=== PATIENT | male | born 1980 | race American Indian/Alaskan Native ===

== ENCOUNTER 2019-06-27 19:14 | Emergency (ER) | payer MEDICAID, SELFPAY ==
[2019-06-27 19:21] VITALS: BP 104/63; PULSE 63; RESP 22; TEMP 36.7; O2SAT 99
[2019-06-27 21:57] VITALS: BP 106/60; PULSE 64; RESP 16; O2SAT 97
--- NOTE | 2019-06-27 21:58 | ED.BACK ---
HPI - Back Pain/Injury General Chief Complaint: Back Pain/Injury Stated Complaint: back pain Time Seen by Provider: 06/27/19 21:50 Source: patient Mode of arrival: wheelchair Limitations: no limitations History of Present Illness HPI Narrative: Patient is a 38-year-old male who presents with right-sided back pain. He says it started today after lifting heavy crab [place]. His in his right thoracic area. He initially had some tingling down his leg. It hurts whenever he walks. He also then jumped off the boat. He took some Tylenol and ibuprofen prior to arrival but still seems to be in pain. It is better while lying flat. Complaint: back pain Onset (ago): hour(s) Duration: constant Location: thoracic spine Quality: sharp Relieving factors: supine Exacerbating factors: movement Context: while lifting Related Data Previous Rx's Medication Instructions Recorded cyclobenzaprine 5 mg PO TID PRN #10 tab 06/27/19 Allergies Allergy/AdvReac Type Severity Reaction Status Date / Time No Known Drug Allergies Allergy Verified 06/27/19 19:21 Review of Systems Review of Systems Narrative: GENERAL: Denies chills,fever HEENT: Denies throat pain RESPIRATORY: Denies dyspnea, cough, wheezing CARDIOVASCULAR: Denies chest pain, palpitations GASTROINTESTINAL: Denies nausea, vomiting MUSCULOSKELETAL: See HPI SKIN: No rash, no laceration, no pruritus NEUROLOGIC: Denies weakness, dizziness, headache, numbness 8 point review of systems is negative except for those stated above and HPI PFSH Social History (Updated 06/27/19 @ 22:01 by Vandana Gamble DO) Smoking Status: Current every day smoker alcohol intake: never substance use type: does not use Social History Smoking Status: Current every day smoker alcohol intake: never substance use type: does not use Exam Initial Vital Signs Initial Vital Signs: Vital Signs Temperature 98.0 F 06/27/19 19:21 Pulse Rate 63 06/27/19 19:21 Respiratory Rate 22 06/27/19 19:21 Blood Pressure 104/63 06/27/19 19:21 Pulse Oximetry 99 06/27/19 19:21 GENERAL: Alert young male lying flat.. CARDIOVASCULAR: peripheral pulses in tact, cap refill <2 sec RESPIRATORY: No respiratory distress, speaks in full sentences without difficulty BACK: No midline tenderness he does have some right thoracic lateral pain tender to touch. Able to lift both legs greater than 60? without any difficulty. EXTREMITIES: Normal range of motion, no clubbing or edema. Neurovascularly intact NEUROLOGICAL: Cranial nerves II through XII grossly intact. Normal gait and speech. SKIN: Warm, dry, no petechiae, no rashes or lesions. Course Orders Ordered: Discontinued Medications Cyclobenzaprine HCl (Flexeril) 10 mg PO NOW ONE Stop: 06/27/19 21:59 Last Admin: 06/27/19 22:05 Dose: 10 mg Documented by: GELY Cyclobenzaprine HCl (Flexeril 10 Mg Prepack) [facility] Stop: 06/27/19 22:08 Last Admin: 06/27/19 22:34 Dose: 1 bottle Documented by: GELY Ketorolac Tromethamine (Toradol) 30 mg IM NOW ONE Stop: 06/27/19 21:59 Last Admin: 06/27/19 22:05 Dose: 30 mg Documented by: GELY Vital Signs Vital signs: Vital Signs - 8 hr 06/27/19 19:21 06/27/19 21:57 06/27/19 22:38 Temperature 98.0 F 97.6 F Pulse Rate 63 64 68 Respiratory Rate 22 16 16 Blood Pressure 104/63 100/61 Blood Pressure [Left Arm] 106/60 Pulse Oximetry 99 97 97 Discharge Plan Departure Patient Disposition: Home Clinical Impression: Thoracic back pain Qualifiers: Chronicity: acute Back pain laterality: right Qualified Code(s): M54.6 - Pain in thoracic spine Discharge Date/Time: 06/27/19 22:39 Instructions: DI for Thoracic Back Pain Activity Restrictions/Additional Instructions: *You have been diagnosed with thoracic back pain *What to do: Recommending light activity stretching, heating pad. Lying flat and not moving will make pain worse. No heavy lifting more than 10 lb until pain is better. *Continue to take medications as directed Ibuprofen 800 mg every 8 hours if needed for pain Flexeril 5 mg every 8 hours if needed from a spasm this can cause drowsiness and dizziness do not drive *Follow up with your primary care provider in 2-3 days *Return to ER if you should have increasing pain, weakness, numbness, tingling or any new, worsening or concerning symptoms Prescriptions: New cyclobenzaprine 5 mg tablet 5 mg PO TID PRN (Reason: muscle spasm) Qty: 10 RF: 0
[2019-06-27] MEDS: CYCLOBENZAPRINE 10 MG TABLET PO (22:05)
[2019-06-27] MEDS: KETOROLAC 60 MG/2 ML VIAL 30 MG IM (22:05)
[2019-06-27] MEDS: CYCLOBENZAPRINE 10 MG PREPACK 1 BOTTLE MISC (22:34)
[2019-06-27 22:38] VITALS: BP 100/61; PULSE 68; RESP 16; TEMP 36.4; O2SAT 97
== END 2019-06-27 22:39 | disposition home or self-care (01) ==
PROVIDERS: Emergency Provider Emergency Medicine
DX: M54.6 Pain in thoracic spine (principal)
CPT/HCPCS: 96372; 99282; 99283; J1885